=== PATIENT | male | born 1960 | race Caucasian/White ===

== ENCOUNTER → 2017-06-21 10:16 | Outpatient (POV) | payer MEDICAID, SELFPAY ==
--- NOTE | 2017-06-21 11:24 | P.CONS_ITS ---
[facility] Pain Management SOAP Note Subjective:: This patient is a pleasant 56-year-old white male who we are treating for low back pain with lumbar radiculopathy symptoms. He had a lumbar epidural steroid injection at L5-S1 which gave him temporary relief. His pain returned after approximately 24 hours. MRI does show significant degenerative changes with extruded disc fragment inferiorly at L5-S1. There is impingement on the left S1 nerve root. Since he did not get any relief with injections I do believe he needs a neurosurgical consultation. We will send him to Dr. Bustos for surgical consultation. Objective:: Alert and oriented ?3 no acute distress. Patient does have an antalgic gait. Motor strength of the lower extremities is 5/5. There is no gross sensory deficit. Assessment:: Degenerative disc disease of lumbar spine with lumbar radiculopathy symptoms with herniated disc and extruded disc fragment at L5-S1 with impingement on the left S1 nerve root Plan:: We will refer him to Dr. Bustos to be seen in [place] for neurosurgical consultation. Will follow up with him after this visit.
[2017-06-21 11:39] VITALS: BP 138/70; PULSE 78; RESP 18; BMI 29.2
== END ==
PROVIDERS: Family Provider Physician Assistant Medical; PCP Physician Assistant Medical; Visit Provider Anesthesiology
DX: M51.16 Intervertebral disc disorders with radiculopathy, lumbar region (principal)
CPT/HCPCS: 99212

== ENCOUNTER → 2017-08-29 12:43 | Outpatient (POV) | payer MEDICAID, SELFPAY ==
[2017-08-29 12:57] VITALS: BP 151/92; PULSE 86; RESP 18; TEMP 36.9; O2SAT 97; BMI 28.8
--- NOTE | 2017-08-29 13:10 | [facility].PAINSOAP ---
[facility] Pain Management SOAP Note Subjective:: Patient is a pleasant 57-year-old white male who presents today for follow-up. Patient is having increased weakness in his bilateral lower legs. Patient has chronic back pain. he has tried and failed physical therapy 6-8 weeks of treatment however he is doing home stretching regimens. Patient has tried and failed anti-inflammatories along with epidural injections and medications. Patient is still working and is trying to continue this. Patient states that his back pain has worsened substantially over the last couple months. Rates his pain at 8 out of 10 today. He states that nothing alleviates it. ROS General: no recent weight change, no fever, no sleep disturbances Respiratory: no cough, no shortness of air, no recurring pulmonary infections Cardiovascular/Peripheral Vascular: No chest pain, No palpitations, no edema, no shortness of breath. Gastrointestinal: no incontinence, normal bowel movements reported Genitourinary: no incontinence Musculoskeletal: Back pain Psychiatric: normal mood/ affect, [denies depression], [denies anxiety] Neurological: This in bilateral lower extremities, that she is at times Objective:: Physical Exam General: Alert and oriented x3, no acute distress, pleasant and cooperative, [on room air] Lungs: Resps E/U, Symmetrical chest expansion, Eyes: PERRL Musculoskeletal: Flexion and extension of lumbar spine somewhat guarded secondary to pain, deep tendon reflexes normal, strength in upper and lower extremities [5/5], antalgic gait noted, positive straight leg test bilaterally at 30? Neurological: speech clear, methods and procedures analyst equal, no gross sensory deficits Assessment:: Degenerative disc disease of the lumbar spine, lumbar radiculopathy, herniated disc, extruded disc fragment at L5-S1 with impingement of the S1 nerve root Plan:: We will send this patient for an MRI due to his increasing back pain along with bilateral leg weakness. this is a necessity for neurosurgical evaluation by Dr. Beltran and I feel that this is needed at this time. Patient has tried and failed physical therapy 6-8 weeks. Patient's tried and failed injective therapy. Patient has tried and failed medications along with anti-inflammatories. Patient has had this pain and been in treatment for over 2 years. This note was dictated using voice recognition software and may contain errors or omissions
--- NOTE | 2017-08-29 13:14 | P.CONS_ITS ---
[facility] Pain Management SOAP Note Subjective:: Patient is a pleasant 57-year-old white male who presents today for follow-up. Patient is having increased weakness in his bilateral lower legs. Patient has chronic back pain. he has tried and failed physical therapy 6-8 weeks of treatment however he is doing home stretching regimens. Patient has tried and failed anti-inflammatories along with epidural injections and medications. Patient is still working and is trying to continue this. Patient states that his back pain has worsened substantially over the last couple months. Rates his pain at 8 out of 10 today. He states that nothing alleviates it. ROS General: no recent weight change, no fever, no sleep disturbances Respiratory: no cough, no shortness of air, no recurring pulmonary infections Cardiovascular/Peripheral Vascular: No chest pain, No palpitations, no edema, no shortness of breath. Gastrointestinal: no incontinence, normal bowel movements reported Genitourinary: no incontinence Musculoskeletal: Back pain Psychiatric: normal mood/ affect, [denies depression], [denies anxiety] Neurological: This in bilateral lower extremities, that she is at times Objective:: Physical Exam General: Alert and oriented x3, no acute distress, pleasant and cooperative, [ on room air] Lungs: Resps E/U, Symmetrical chest expansion, Eyes: PERRL Musculoskeletal: Flexion and extension of lumbar spine somewhat guarded secondary to pain, deep tendon reflexes normal, strength in upper and lower extremities [5/5], antalgic gait noted, positive straight leg test bilaterally at 30? Neurological: speech clear, nursing program chair equal, no gross sensory deficits Assessment:: Degenerative disc disease of the lumbar spine, lumbar radiculopathy, herniated disc, extruded disc fragment at L5-S1 with impingement of the S1 nerve root Plan:: We will send this patient for an MRI due to his increasing back pain along with bilateral leg weakness. this is a necessity for neurosurgical evaluation by Dr. Beltran and I feel that this is needed at this time. Patient has tried and failed physical therapy 6-8 weeks. Patient's tried and failed injective therapy. Patient has tried and failed medications along with anti- inflammatories. Patient has had this pain and been in treatment for over 2 years. This note was dictated using voice recognition software and may contain errors or omissions
== END ==
PROVIDERS: Family Provider Physician Assistant Medical; PCP Physician Assistant Medical; Visit Provider Clinical Nurse Specialist Family Health
DX: M54.16 Radiculopathy, lumbar region (principal)
CPT/HCPCS: 99212

== ENCOUNTER → 2017-09-20 12:18 | Outpatient (CLI) | payer MEDICAID, SELFPAY ==
--- NOTE | 2017-09-20 13:01 | MR_ITS ---
MR lumbar spine w con COMPARISON: None HISTORY: Low back pain TECHNIQUE: Standard sagittal and axial sequences were performed along with a myelogram sequence. FINDINGS: There is normal curvature and alignment. The marrow signal is normal in all lumbar vertebrae. There is a normal healthy high signal in the in the L1-2, L2-3 and L3-4 disc. There is decreased signal of the L4-5 and L5-S1 disc consistent with desiccation. There is a very small central disc protrusion L4-5. The myelogram sequence is unremarkable. The conus is normal. IMPRESSION: Small central disc protrusion L4-5 without significant neural foraminal compromise on either side and no other significant abnormality noted
== END ==
PROVIDERS: Family Provider Physician Assistant Medical; PCP Physician Assistant Medical; Visit Provider Anesthesiology
DX: M54.5 Low back pain (principal)
CPT/HCPCS: 72149; 76376